=== PATIENT | female | born 1935 ===

== ENCOUNTER 2021-08-15 10:50 | Outpatient (CLI) | payer OTHER ==
[~2021-08-15 10:50] MED LIST: PERCOCET 5/3251 TAB PO
== END 2021-08-15 10:51 | disposition home or self-care (01) ==
LOC: SONOGRAMA 10:50
PROVIDERS: ATTEND Pathology Anatomic Pathology & Clinical Pathology
DX: E04.2 Nontoxic multinodular goiter (principal)